=== PATIENT | male | born 1950 | race Two or more races ===

== ENCOUNTER 2022-03-11 06:00 | Day surgery (SDC) | payer OTHER ==
[2022-03-11] MEDS ORDERED: PERCOCET 5-3251 EACH PO (11:58)
[2022-03-11] MEDS ORDERED: DERMOPLAST PAIN78 GM TOP (11:59)
[2022-03-11] MEDS ORDERED: NEURONTIN300 MG PO (11:59)
[2022-03-11] MEDS ORDERED: KETO10TA2 PO (11:59)
== END 2022-03-11 17:55 | disposition home or self-care (01) ==
LOC: CIR.AMB 06:00
PROVIDERS: ATTEND Surgery
DX: K64.4 Residual hemorrhoidal skin tags (principal); K64.8 Other hemorrhoids; K62.5 Hemorrhage of anus and rectum; K64.2 Third degree hemorrhoids; Z91.041 Radiographic dye allergy status; I10 Essential (primary) hypertension; F17.210 Nicotine dependence, cigarettes, uncomplicated; E66.09 Other obesity due to excess calories